=== PATIENT | male | born 1945 | race Caucasian/White ===

== ENCOUNTER → 2017-12-08 | Outpatient (CLI) | payer OTHER ==
[2017-11-23 09:09] LABS: ABSOLUTE BASOPHILS 0.1 thou/uL (0.0-0.2); ABSOLUTE EOSINOPHILS 0.4 thou/uL (0.0-0.7); ABSOLUTE LYMPHOCYTES 1.6 thou/uL (0.8-5.3); ABSOLUTE MONOCYTES 0.6 thou/uL (0.0-1.2); ABSOLUTE NEUTROPHILS 3.2 thou/uL (1.6-8.1); BASOPHILS 1.1 %; EOSINOPHILS 6.7 %; HEMOGLOBIN 13.5 gm/dL (14.0-18.0); LYMPHOCYTES 28.1 %; MCH 28.4 pg (26.0-34.0); MCHC 32.9 g/dL (28.0-37.0); MCV 86.3 fL (80.0-100.0); MONOCYTES 9.8 %; MPV 10.2 fl. (7.2-11.1); NUCLEATED RBCS 0 /100WBC; PLATELET COUNT* 192 thou/uL (150-400); POLYS 54.3 %; RBC 4.75 mil/uL (4.50-6.00); RDW-CV 15.4 % (10.5-14.5); WBC 5.8 thou/uL (4.0-11.0)
[2017-11-23 09:19] LABS: CALCIUM 8.4 mg/dL (8.5-10.1); POTASSIUM 4.5 mmol/L (3.5-5.1)
[2017-11-23 09:23] LABS: ALBUMIN 3.8 g/dL (3.4-5.0); TOTAL BILIRUBIN 0.3 mg/dL (<0.1-1.0); TOTAL PROTEIN 7.2 g/dL (6.4-8.2)
[2017-11-23 10:19] LABS: ESR (SEDRATE) 6 mm/hr (0-20)
--- NOTE | 2017-11-23 16:37 | EKG ---
[place] [address] ELECTROCARDIOGRAM REPORT Name: ROSARIO DELGADO Sandra Room: PRE [facility].#: [id number] Admission: Attend Phys: Geraldo Batres DO Discharge: Date of : 41 Report #: [id number] THIS REPORT FOR: //name// [facility] Test Date: 2017-11-23 Test Time: 09:31:46 Pat Name: ROSARIO DELGADO Department: Room: Gender: M Creeler: : 1945 Requested By: Geraldo Batres Order Number: [id number] Reading MD: Yannick Smith Measurements Intervals [place] Rate: 81 P: 26 TN: 172 QRS: -9 QRSD: 91 T: 26 QT: 334 QTc: 388 Interpretive Statements Sinus rhythm Baseline wander in lead(s) V4 No previous ECG available for comparison Electronically Signed On 11-23-2017 16:37:12 CDT by Yannick Smith [email or web address] <ELECTRONICALLY SIGNED> By: Yannick Smith MD, [facility] 11/23/17 1637 0931 Yannick Smith MD, FACC /EPI
[2017-11-25 02:06] LABS: GLYCOHEMOGLOBIN (HGB A1C) 6.6 % (4.8-5.6)
[~2017-12-08] VITALS: Ht 180.3 cm; Wt 108.9 kg
[~2017-12-08] MED LIST: ALEVE PM CAPLE1 EACH PO; ALEVE220 MG PO; ASPIR 8181 MG PO; CALCIUM 600 +1 EAC1 PO; FISH OIL 1,001000 M2 PO; GLUCOSAMINE-CH1 EA21 PO; HA JOINT PO; LIPITOR80 MG PO; METFORMIN HCL500 MG PO; NEURONTIN 300300 M1 PO; SKIN PO; UNICOMPLEX M TA1 TA1 PO; ZESTORETIC 20-1 EAC3 PO
== END ==
LOC: M.SUR 06:33 → EDSTATUS 08:40 → M.LAB 08:43 → M.SUR 09:11
PROVIDERS: Orthopaedic Surgery
DX: M17.11 Unilateral primary osteoarthritis, right knee (principal)

== ENCOUNTER → 2017-12-19 | Outpatient (CLI) | payer OTHER | LOC: M.WC 07:56 | DX: E11.621 Type 2 diabetes mellitus with foot ulcer (principal); L97.511 Non-pressure chronic ulcer of other part of right foot limited to breakdown of skin; E11.40 Type 2 diabetes mellitus with diabetic neuropathy, unspecified; G47.30 Sleep apnea, unspecified; Z85.46 Personal history of malignant neoplasm of prostate; Z79.82 Long term (current) use of aspirin ==

== ENCOUNTER → 2017-12-26 | Outpatient (CLI) | payer OTHER | LOC: M.WC 04:53 | DX: E11.621 Type 2 diabetes mellitus with foot ulcer (principal); L97.511 Non-pressure chronic ulcer of other part of right foot limited to breakdown of skin; E11.40 Type 2 diabetes mellitus with diabetic neuropathy, unspecified; G47.30 Sleep apnea, unspecified; Z85.46 Personal history of malignant neoplasm of prostate ==

== ENCOUNTER → 2018-01-02 | Outpatient (CLI) | payer OTHER | LOC: M.WC 08:20 | DX: E11.621 Type 2 diabetes mellitus with foot ulcer (principal); L97.512 Non-pressure chronic ulcer of other part of right foot with fat layer exposed; L84 Corns and callosities; E11.40 Type 2 diabetes mellitus with diabetic neuropathy, unspecified; G47.30 Sleep apnea, unspecified; Z85.46 Personal history of malignant neoplasm of prostate ==

== ENCOUNTER → 2018-01-09 | Outpatient (CLI) | payer OTHER | LOC: M.WC 04:32 | DX: E11.621 Type 2 diabetes mellitus with foot ulcer (principal); L97.511 Non-pressure chronic ulcer of other part of right foot limited to breakdown of skin; L84 Corns and callosities; E11.40 Type 2 diabetes mellitus with diabetic neuropathy, unspecified; G47.30 Sleep apnea, unspecified; Z85.46 Personal history of malignant neoplasm of prostate ==

== ENCOUNTER → 2018-01-16 | Outpatient (CLI) | payer OTHER | LOC: M.WC 04:58 | DX: E11.621 Type 2 diabetes mellitus with foot ulcer (principal); L97.511 Non-pressure chronic ulcer of other part of right foot limited to breakdown of skin; E11.40 Type 2 diabetes mellitus with diabetic neuropathy, unspecified; G47.30 Sleep apnea, unspecified; Z85.46 Personal history of malignant neoplasm of prostate ==

== ENCOUNTER → 2018-01-23 | Outpatient (CLI) | payer OTHER | LOC: M.WC 05:21 | DX: E11.621 Type 2 diabetes mellitus with foot ulcer (principal); L97.518 Non-pressure chronic ulcer of other part of right foot with other specified severity; E11.40 Type 2 diabetes mellitus with diabetic neuropathy, unspecified; G47.30 Sleep apnea, unspecified; Z85.828 Personal history of other malignant neoplasm of skin ==

== ENCOUNTER 2019-03-12 07:29 | Inpatient (IN) | payer OTHER ==
[~2019-03-12] VITALS: Ht 175.3 cm; Wt 99.8 kg
--- NOTE | ~2019-03-12 | OP ---
[address] [address] OPERATIVE REPORT Name: GOLDYFIONAARIELROSARIO Sandra Room: [address] M.R.#: [id number] Admission: 03/12/19 Attend Phys: Geraldo Batres DO Discharge: Date of : 41 Report #: [id number] THIS REPORT FOR: //name// CC: Geraldo Fishman PREOPERATIVE DIAGNOSES: Tricompartmental varus deformity, osteoarthritis of the right knee. POSTOPERATIVE DIAGNOSIS: Tricompartmental varus deformity, osteoarthritis of the right knee. SURGERY PERFORMED: Roshan Persona cemented 3 component, right total knee arthroplasty, femur 11, H is the tibia, 38 patella, 11 is the polyethylene. ANESTHESIA: General anesthetic and adductor canal block. ANTIBIOTICS: The patient did receive Ancef 2 grams IV piggyback preoperatively. SPECIMENS: He has no specimens. ESTIMATED BLOOD LOSS: 100 mL. COMPLICATIONS: None. DRAINS: None. GROSS FINDINGS: X-rays prior to surgery demonstrated this tricompartmental osteoarthritis in both knee regions. Dddu-hm-ohsa deformity was noted medially. He had a totally eburnated bone in the right knee upon entering the knee joint. The entire medial compartment was eburnated, patellofemoral compartment knee eburnated and multiple osteophytes throughout. He has an extension lag of at least 5 degrees or 6. Post placement of the total joint, full extension was noted with 120 of flexion. He has stable arc of motion post-placement of the arthroplasty as well as extension, mid flexion and flexion. The patient did have no other new complaints at this point in time. Prior to surgery as he already failed all conservative care measures including the strengthening, the NSAIDs, injections and so he is elected for the total joint. SURGERY IN DETAIL: He was taken to the operating room, given a general anesthetic and in the preop holding area, previously an adductor canal block applied. He had a well-padded tourniquet placed high on his right thigh. He underwent Hibiclens scrub and chlorhexidine prep and sterile draping for right knee surgery. Timeout was called and verified by everyone in the room for the right knee. At this point in time, without a tourniquet, I made a midline incision through skin and subcutaneous tissues followed with second medial parapatellar capsular incision with a new knife blade[place] [address] OPERATIVE REPORT Name: ROSARIO DELGADO Room: [address] [facility]#: [id number] Admission: 03/12/19 Attend Phys: Geraldo Batres DO Discharge: Date of : 41 Report #: [id number] maintained through surgery. The patella was everted, knee flexed 90 degrees. All excess osteophytes were removed. Distal femoral drill hole was made through routine fashion and I drilled the distal femur, put the distal cutting block in place, take an extra 2 mm off the femur secondary to that extension lag. Once the femur was cut, I went down to the tibia side using an external guide across the ankle secured the cutting bone block proximally, resected 2 mm below that medial side. The wafer of bone was cut and at this point in time, all that bone that was cut was removed from the tibia now. I did remove some excess osteophytes as well prior to this cutting process. Once the bone was removed, I put the extension block in place. It fit quite nicely, so I went ahead and removed the remaining pins. At this point in time, I went back and sized the femur to a #11 appropriately the femur jig was drilled, and 4-in-1 block for 11 was placed into position. All cuts were made and removing all that cutting bone now with a rongeur. Once the femur was completed, I went back to the tibia size, I sized it to number H, appropriately secured, screw fixated the baseplate into position looking for alignment and checking that in extension and flexion, it was appropriate. I now went ahead and put the femur back in place to the 10 mm polyethylene trial. It worked good, but we elected at this point in time to go on and do the Roshan reamer sized the patella to a 51 reamer appropriately reamed and the now 38 patella cutting jig was placed on the patella and appropriately drilled. The patellar button was placed and we put the leg through motion demonstrated good stability. At this point in time, I elected to Esmarch the right lower extremity and inflated tourniquet to 300 mmHg and preparing for one stage cementing technique. A pulsatile lavage irrigated the knee. After all components were removed from the femur and the patella, I appropriately reamed and cruciform compressed the tibia, then removed all those components again copiously irrigated it with normal saline pulsatile lavage and a drilled medial side of the femur irrigated again and I preparing for the one stage cement. At this point in time, I cemented the tibia into position and tamped into position. The femur was likewise cemented into position. I removed all excess cement from both of those areas compressed him with a 12 mm polyethylene until cement hardened, cemented the patella place as well and held until hardened. I put in through an arc of motion. I elected to try an 11 as the 12 was slightly tight. I put a 11 mm polyethylene tibial base tray. It fit perfect with excellent arc of motion and stability. At this point in time, the trial component was removed. A pulsatile lavage irrigated the knee. I did look for any loose debris prior to placement of that vitamin E polyethylene could not find any subtle vitamin E which clicked into the tibia tray and the leg was placed through an arc of motion after it was reduced. It was quite stable again and TXA solution was put on the knee for 3 minutes, tourniquet was released. At this point in time after releasing the tourniquet, I went ahead and closed the capsule with #1 Vicryl, #1 Ethibond shyovl-du-qsndl fashion, subcutaneous tissues, 2-0 Monocryl in inverted fashion with a Stratafix, 3-0 subcutaneously and then Dermabond to the skin. Mepilex dressing was applied. He was transferred off the table, taken to [place] [address] OPERATIVE REPORT Name: ROSARIO DELGADO Sandra Room: [address] [facility]#: [id number] Admission: 03/12/19 Attend Phys: Geraldo Batres DO Discharge: Date of : 41 Report #: [id number] I attest I was present for all critical aspects of surgery. Needle, instrument, sponge counts correct. SURGEON: Geraldo Batres DO NURSE STAFF [facility]: Dr. Almaguer for the complexity of the case. SECOND DIRECTOR OF IT OPERATIONS: Mateus Tubbs DO By: [id number] silke Welsh
[~2019-03-12 07:29] MED LIST changes: +CALCIUM 500 +1 EAC6 PO; +HYALURONIC ACI1 EACH PO
[2019-03-12 11:00] VITALS: BP 131/73
[2019-03-12 20:40] VITALS: BP 117/54
[2019-03-13] VITALS: BP 97/61
[2019-03-13 04:00] VITALS: BP 107/63
[2019-03-13 04:46] LABS: HEMATOCRIT 32.5 % (42.0-52.0); HEMOGLOBIN 11.1 gm/dL (14.0-18.0)
--- NOTE | 2019-03-13 05:14 | NUR ---
PT A&O X 4, VSS ON 1-2L. MEDS GIVEN ORDERED. PT DENIED PAIN. UP WITH WALKER USED URINAL. DRESSING TO RT KNEE C/D/I. ICE PACKS IN PLACE. HOURLY ROUNDING COMPLETED. WILL CONTINUE TO MONITOR.
[2019-03-13 07:40] VITALS: BP 136/70
[2019-03-13] MEDS ORDERED: COLACE 100 MG100 MG PO (08:01)
[2019-03-13] MEDS ORDERED: ELIQUIS5 MG PO (08:01)
[2019-03-13] MEDS ORDERED: TRAMADOL 50 MG50 MG PO (08:01)
[2019-03-13] MEDS ORDERED: OXYCODONE HCL 55 MG PO (08:01)
--- NOTE | 2019-03-13 13:46 | NUR ---
CM ASSESSMENT: VISITED WITH PT IN ROOM. PT AMBULATES WITH WALKER AND SB ASSIST. PT PLANS TO DISCHARGE HOME WITH DAVID RANDLE. AWAITING THERAPY NOTES
[2019-03-13 14:39] VITALS: BP 136/70
--- NOTE | 2019-03-13 14:55 | NUR ---
CARABALLO FOR ELIQUIS 5 MG 14 TABS IS $116. DISCUSSED WITH PT AND . HOME HEALTH REFERRAL SENT TO [facility] SENT PER PT REQUEST
[2019-03-13 15:15] VITALS: BP 136/70
--- NOTE | 2019-03-13 15:53 | NUR ---
PATIENT'S IV REMOVED. PATIENT AND SPOUSE GIVEN DISCHARGE INSTRUCTIONS AND PRESCRIPTIONS. PATIENT AND SPOUSE VERBALIZED UNDERSTANDING IN REGARDS TO FOLLOW UP APPOINTMENTS, NEW MEDICATION, AND INCISION CARE. PATIENT DISCHARGED TO HOME WITH CPM AND ALL BELONGINGS. ESCORTED OFF NURSING UNIT VIA WHEELCHAIR WITH NURSING STAFF. DISCHARGED TO HOME VIA PRIVATE VEHICLE.
--- NOTE | 2019-03-13 16:55 | NUR ---
POST DISCHARGE, O.T. RECIEVED O.T. EVAL AND TX ORDERS. WILL DEFER TO P.T. AT THIS TIME. PLEASE ORDER FURTHER O.T. SERVICES IF NEEDED.
--- NOTE | 2019-03-13 17:03 | NUR ---
I have reviewed the documentation by VANE SEAMAN from 03/13/19 to 03/13/19 and I concur with it. SHRAVAN BERMAN
--- NOTE | 2019-03-14 11:18 | NUR ---
REFERRAL AND ORDERS SENT TO [facility] [phone]; [phone]. CONFIRMED WITH SUMAYA [phone] THAT [facility] WILL FOLLOW UP AND SCHEDULE WITH PATIENT.
--- NOTE | 2019-03-14 15:13 | NUR ---
CONFIRMED WITH SUMAYA [facility] ([facility] THAT THEY RECEIVED REFERRAL AND PATIENT IS SCHEDULED TO BE SEEN ON 03/14/19.
== END 2019-03-13 15:45 | disposition home health service (06) | DRG 470 ==
LOC: M.PRE 07:29 → M.TBA-ER 10:05 → M.PRE 10:30 → M.TBA 10:42 → M.PRE 13:17 → M.ORTHSURG 15:08 → M.TBA 15:08 → M.PRE 15:14 → M.ORTHSURG 19:29
PROVIDERS: Orthopaedic Surgery; ADMIT Internal Medicine
PROC: 0SRC0J9 Replacement of Right Knee Joint with Synthetic Substitute, Cemented, Open Approach (ICD-10-PCS; principal; 2019-03-12)
PROC: 5A09357 Assistance with Respiratory Ventilation, Less than 24 Consecutive Hours, Continuous Positive Airway Pressure (ICD-10-PCS; 2019-03-12)
PROC: 5A09357 Assistance with Respiratory Ventilation, Less than 24 Consecutive Hours, Continuous Positive Airway Pressure (ICD-10-PCS; 2019-03-13)
DX: M17.11 Unilateral primary osteoarthritis, right knee (principal); D64.9 Anemia, unspecified; C61 Malignant neoplasm of prostate; E11.9 Type 2 diabetes mellitus without complications; I10 Essential (primary) hypertension; E66.9 Obesity, unspecified; E11.40 Type 2 diabetes mellitus with diabetic neuropathy, unspecified; E78.5 Hyperlipidemia, unspecified; Z98.52 Vasectomy status; Z68.32 Body mass index [BMI] 32.0-32.9, adult; Z88.8 Allergy status to other drugs, medicaments and biological substances; Z90.89 Acquired absence of other organs

== ENCOUNTER → 2021-01-13 | Outpatient (CLI) | payer OTHER ==
[~2021-01-13] MED LIST changes: +COLACE 100 MG100 MG PO; +ELIQUIS5 MG PO; +OXYCODONE HCL 55 MG PO; +TRAMADOL 50 MG50 MG PO
== END ==
LOC: M.ULTRA 13:04
PROVIDERS: ATTEND Nurse Practitioner Family
DX: N50.3 Cyst of epididymis (principal); I86.1 Scrotal varices; K40.20 Bilateral inguinal hernia, without obstruction or gangrene, not specified as recurrent; N50.89 Other specified disorders of the male genital organs

== ENCOUNTER → 2021-01-15 | Outpatient (CLI) | payer OTHER | LOC: M.LAB 12:41 → M.CT 14:00 | PROVIDERS: ATTEND Surgery | DX: K40.20 Bilateral inguinal hernia, without obstruction or gangrene, not specified as recurrent (principal); K80.20 Calculus of gallbladder without cholecystitis without obstruction; M51.36 Other intervertebral disc degeneration, lumbar region; M47.814 Spondylosis without myelopathy or radiculopathy, thoracic region; M47.818 Spondylosis without myelopathy or radiculopathy, sacral and sacrococcygeal region; N20.0 Calculus of kidney; N28.1 Cyst of kidney, acquired; N28.89 Other specified disorders of kidney and ureter; J84.10 Pulmonary fibrosis, unspecified; K57.30 Diverticulosis of large intestine without perforation or abscess without bleeding; I25.10 Atherosclerotic heart disease of native coronary artery without angina pectoris; E27.8 Other specified disorders of adrenal gland ==